=== PATIENT | male | born 1975 | race Caucasian/White ===

== ENCOUNTER 2018-02-18 09:25 | Emergency (ER) | payer BC, OTHER ==
[2018-02-18 09:32] VITALS: BP 123/59
--- NOTE | 2018-02-18 09:35 | UC ---
Back Pain HPI - HPI Summary HPI Summary: 42 yo male presents with low back pain. He tells me that yesterday he was lifting a heavy chest from the floor and felt a pull and pop in his lower back with pain. Since that time has had pain in his lower back radiating to his right leg with mild numbness. Pain is worse going from a sitting to standing position and lying flat. He took some ibuprofen yesterday with no relief. Denies dysuria, abdominal pain, saddle anesthesia, or loss of bowel/bladder control. - History of Current Complaint Chief Complaint: UCBackPain Stated Complaint: BACK PAIN Time Seen by Provider: 02/18/18 09:34 Hx Obtained From: Patient Onset/Duration: Sudden Onset Timing: Constant Severity Initially: Severe Severity Currently: Severe Pain Intensity: 8 Pain Scale Used: 0-10 Numeric - Allergies/Home Medications Allergies/Adverse Reactions: Allergies Allergy/AdvReac Type Severity Reaction Status Date / Time No Known Allergies Allergy Verified 02/18/18 09:34 PMH/Surg Hx/FS Hx/Imm Hx Respiratory History: Asthma - Surgical History Surgical History: Yes Surgery Procedure, Year, and Place: kidney stones. appy. pyloric stenosis. hernia repair - Family History Known Family History: Positive: Other Family History: MATERNAL UNCLE - COLON CANCER. MGF - LEUKEMIA - Social History Occupation: Employed Full-time Lives: With Family Alcohol Use: Occasionally Substance Use Type: None Smoking Status (MU): Never Smoked Tobacco - Immunization History Most Recent Tetanus Shot: 2011 Review of Systems All Other Systems Reviewed And Are Negative: Yes Constitutional: Positive: Negative Skin: Positive: Negative Respiratory: Positive: Negative Cardiovascular: Positive: Negative Neurovascular: Positive: Negative Musculoskeletal: Positive: Other: - Low back pain Neurological: Positive: Numbness - right leg Psychological: Positive: Negative Physical Exam - Summary Physical Exam Summary: GENERAL: NAD. WDWN. No pain distress. SKIN: No rashes, sores, lesions, or open wounds. NECK: Supple. FROM. Nontender. No lymphadenopathy. CHEST: CTAB. No r/r/w. No accessory muscle use. Breathing comfortably and in no distress. CV: RRR. Without m/r/g. Pulses intact. Cap refill <2seconds MSK: Low back: NTTP. Pain with flexion and extension of spine. Positive SLR on right for low back pain with slight radiation into right leg. Strength 5/5 B/L LEs including dorsiflexion and plantar flexion. FROM B/L LEs. No edema. NEURO: Alert. Sensations intact B/L LEs L3-S1. PSYCH: Age appropriate behavior. Triage Information Reviewed: Yes Vital Signs: Initial Vital Signs Temp 97.2 F 02/18/18 09:29 Pulse 71 02/18/18 09:29 Resp 16 02/18/18 09:29 BP 123/59 02/18/18 09:29 Pulse Ox 100 02/18/18 09:29 Vital Signs Reviewed: Yes Back Pain Course/Dx - Course Course Of Treatment: XR: IMPRESSION: UNREMARKABLE RADIOGRAPHS OF THE LUMBAR SPINE. Pt was given Toradol IM in the clinic with mild pain relief. Discussed possibility of underlying disc issue vs muscle strain. Advised to treat conservatively and f/u if symptoms do not improve or continue. Rest and apply heat. Will try flexeril and short course of [place] for use sparingly if needed. - Differential Dx/Diagnosis Provider Diagnosis: Low back pain Discharge - Sign-Out/Discharge Documenting (check all that apply): Patient Departure All imaging exams completed and their final reports reviewed: Yes - Discharge Plan Condition: Stable Disposition: HOME Prescriptions: Cyclobenzaprine TAB* [Flexeril 10 MG TAB*] 10 mg PO TID PRN #21 tab PRN Reason: Pain Hydrocodone/Acetaminophen [[place] 5-325 Tablet] 1 each PO BID PRN #8 tablet MDD 2 PRN Reason: Pain Patient Education Materials: Acute Low Back Pain (ED), Lower Back Exercises (ED ) Referrals: Paola Boo MD [Primary Care Provider] - [facility] [Provider Group] - If Needed Additional Instructions: If you develop a fever, shortness of breath, chest pain, new or worsening symptoms - please call your PCP or go to the ED. 1) Rest and apply ice/heat to your pain 2) Take pain medications as directed 3) If your symptoms do not improve in 7-10 days, nilsa follow up with [facility] at the number below for further evaluation - Billing Disposition and Condition Condition: STABLE Disposition: Home
[2018-02-18] MEDS ORDERED: Ketorolac INJ* 60 MG/2 ML VIAL IM ONE (09:45)
== END 2018-02-18 10:33 | disposition home or self-care (01) ==
LOC: UCEAST 09:25
DX: M54.5 Low back pain (principal); J45.909 Unspecified asthma, uncomplicated; X50.0XXA Overexertion from strenuous movement or load, initial encounter; Y93.89 Activity, other specified; Y92.9 Unspecified place or not applicable
CPT/HCPCS: 72110; 96372; 99212; G0463; J1885

== ENCOUNTER 2018-06-13 06:45 | Day surgery (SDC) | payer BC, OTHER ==
[~2018-06-13 06:45] MED LIST: Buffered Lidocaine 1% SYRIN* 1 ML/SYRINGE INTRADERM ONE; Lactated Ringers 1000 ML Bag* 1,000 ML IV SCH
[2018-06-13] MEDS ORDERED: ceFAZolin 2 GM in NS PREMIX(*) 2 GM/100 ML BAG IVPB ONE (07:18)
[2018-06-13] MEDS ORDERED: Ketorolac INJ* 30 MG/ML 1 ML VIAL ONE (07:18)
[2018-06-13] MEDS ORDERED: Bupivacaine 0.5% W/EPI SDV* 30 ML VIAL ONE (08:28)
[2018-06-13] MEDS ORDERED: fentaNYL* 50 MCG/ML 2 ML VIAL (100 MCG VIAL) ONE (08:28)
[2018-06-13] MEDS ORDERED: Lidocaine 1% INJ* 10 MG/ML 30 ML SDV ONE (08:28)
[2018-06-13] MEDS ORDERED: Midazolam* 1 MG/ML 5 ML VIAL (5 MG) ONE (08:29)
[2018-06-13] MEDS ORDERED: Naloxone* 0.4 MG/ML 1 ML VIAL IV PRN (08:34)
[2018-06-13] MEDS ORDERED: Propofol* 10 MG/ML 20 ML BTL ONE (08:52)
[2018-06-13] MEDS ORDERED: Lidocaine 2% PF * 5 ML VIAL ONE (08:52)
[2018-06-13 10:14] VITALS: BP 114/65
--- NOTE | 2018-06-13 12:46 | OP ---
CC: Iban Rodas MD; [facility] OPERATIVE REPORT: DATE OF OPERATION: 06/13/18 DATE OF : 77 SURGEON: Iban Rodas MD ANESTHESIOLOGIST: Dr. Lemon. ANESTHESIA: LMAC anesthesia. PRE-OP DIAGNOSIS: Right inguinal hernia. POST-OP DIAGNOSIS: Right inguinal hernia. OPERATIVE PROCEDURE: Open repair of right inguinal hernia with mesh. DESCRIPTION OF PROCEDURE: The patient was supine on the operating room table. After adequate intrave nous sedation, compression stockings, Erlin-Hugger warmer, and intravenous antibiotics, the right groi n was clipped and prepped with antiseptic, draped in a sterile fashion. Local infiltrative anesthesi a was administered. An approximately 3-inch incision was created and carried down to the external ob lique, which was opened in the direction of its fibers. Cord structures were encircled with a Penros e drain and tented upward. Indirect space hernia was readily identified. This was dissected free an d reduced, and a cone mesh plug was placed into the internal ring, sutured there with 2-0 Vicryl. A second piece of mesh was placed over the inguinal floor, sutured at the tubercle, tails were split, b rought on the cord structures and tacked down laterally. External oblique was closed over top with 2 -0 Vicryl, Yris's with 3-0 Vicryl, and skin with 4-0 Prolene followed by sterile dressing. He tole rated the procedure well and was brought to Recovery in good condition. No complications. No drains . No pathologic specimens. Sponge and instrument counts correct. Estimated blood loss 10 mL. [id number]/[facility] #: [id number]
== END 2018-06-13 11:09 | disposition home or self-care (01) ==
LOC: OR 06:45
PROVIDERS: ATTEND Surgery
DX: K40.90 Unilateral inguinal hernia, without obstruction or gangrene, not specified as recurrent (principal); J45.909 Unspecified asthma, uncomplicated; K21.9 Gastro-esophageal reflux disease without esophagitis
CPT/HCPCS: C1781; J0690; J1885; J2250; J2704; J3010

== ENCOUNTER 2018-10-07 07:12 | Inpatient (IN) | payer BC ==
[2018-10-07] MEDS ORDERED: Ticagrelor* 90 MG TAB PO ONE (07:24)
[2018-10-07] MEDS ORDERED: Heparin for STEMI(*) 5,000 UNITS/ML 1 ML VIAL IV ONE (07:24)
[2018-10-07] MEDS ORDERED: NS 0.9% 1000 ML** 1,000 ML IV ONE (07:28)
[2018-10-07] MEDS ORDERED: Morphine 4 MG/ML VIAL (1 ml) 4 MG/ML VIAL IV ONE (07:29)
[2018-10-07] MEDS ORDERED: Ondansetron INJ* 2 MG/ML VIAL IV ONE (07:29)
[2018-10-07] MEDS ORDERED: nitroGLYCERIN DRIP* 25,000 MCG/250 ML BTL ONE (07:30)
[2018-10-07] MEDS ORDERED: Lidocaine 1% INJ* 10 MG/ML 30 ML SDV ONE (07:30)
[2018-10-07] MEDS ORDERED: Heparin(*) 1000 UNIT/ML 10 ML VIAL CATH LAB IV ONE (07:30)
[2018-10-07] MEDS ORDERED: VERAPAMIL 2.5 MG/ML 2 ML VIAL ** 5 mg/2 ml ONE (07:30)
[2018-10-07] MEDS ORDERED: Heparin 2 UNITS/ML IVPREMIX* 3,000 UNIT/1,500 ML BAG IV ONE (07:31)
[2018-10-07] MEDS ORDERED: Iohexol 350 (CONTRAST) 200 ML MDV IV ONE (07:35)
--- NOTE | 2018-10-07 07:35 | ED ---
HPI Chest Pain - HPI Summary HPI Summary: Pt is a 43 y/o M presenting to the ED with a chief complaint of chest pain in the mid-sternal region onset this morning when he woke up. STEMI CALLED 0722. He rates the pain at a 5/10 and describes it as a dull, aching feeling. He also reports nausea and diaphoresis. Nothing makes the pain worse or better, and he took two ASA 325mg this morning. He states he smokes 1-2 cigarettes a day, drinks alcohol often, and does not use recreational drugs. NKDA. His grandfather of a heart attack at 56 y/o. - History of Current Complaint Chief Complaint: EDChestPainROMI Hx Obtained From: Patient Onset/Duration: Started Hours Ago, Still Present Timing: Constant, Lasting Hours Initial Severity: Moderate Current Severity: Moderate Pain Intensity: 5 Pain Scale Used: 0-10 Numeric Chest Pain Location: Mid Sternal Chest Pain Radiates: No Character: Dull/Aching Aggravating Factor(s): Nothing Alleviating Factor(s): Nothing Associated Signs and Symptoms: Positive: Chest Pain, Diaphoresis, Nausea - Allergy/Home Medications Allergies/Adverse Reactions: Allergies Allergy/AdvReac Type Severity Reaction Status Date / Time bee pollen Allergy Anaphylatic Verified 10/07/18 09:07 Shock bee venom protein (honey bee) Allergy Anaphylatic Verified 10/07/18 09:07 Shock Environmental/Seasonal Allergy See Comment Uncoded 06/13/18 07:26 Allergies PMH/Surg Hx/FS Hx/Imm Hx Previously Healthy: Yes Endocrine/Hematology History: Denies: Hx Diabetes, Hx Thyroid Disease Cardiovascular History: Denies: Hx Congestive Heart Failure, Hx Deep Vein Thrombosis, Hx Hypertension , Hx Myocardial Infarction, Hx Pacemaker/ICD, Other Cardiovascular Problems/ Disorders Respiratory History: Reports: Hx Asthma - He states that he uses his albuterol a "handfull" times a year. Denies: Hx Chronic Obstructive Pulmonary Disease (COPD), Hx Lung Cancer, Other Respiratory Problems/Disorders GI History: Reports: Hx Ulcer - possible ulcer-started pantoprazole 06/05/18- seen in ER, Other GI Disorders Denies: Hx Gall Bladder Disease, Hx Gastrointestinal Bleed, Hx Urosepsis History: Reports: Hx Kidney Stones - lithotripsy 2010 Denies: Hx Renal Disease, Other Problems/Disorders Musculoskeletal History: Reports: Other Musculoskeletal History - Right inguinal hernia Denies: Hx Scoliosis Sensory History: Denies: Hx Contacts or Glasses, Hx Hearing Aid Opthamlomology History: Denies: Hx Contacts or Glasses Neurological History: Reports: Hx Nerve Disease - numbness in right upper outer leg from previous injury Denies: Hx Dementia, Hx Headaches, Hx Migraine, Hx Seizures, Hx Transient Ischemic Attacks (TIA), Other Neuro Impairments/Disorders Psychiatric History: Denies: Hx Anxiety, Hx Depression, Hx Schizophrenia, Hx Bipolar Disorder - Surgical History Surgery Procedure, Year, and Place: Kidney Stone 2010. Appendectomy 1990. Pyloric Stenosis as an . Ventral Hernia Repair as a child Hx Anesthesia Reactions: No Infectious Disease History: No Infectious Disease History: Denies: Hx Hepatitis, Hx Human Immunodeficiency Virus (HIV), Traveled Outside the [place] in Last 30 Days - Family History Known Family History: Positive: Cardiac Disease - grandfather of a heart attack at 56 y/o, Other Family History: MATERNAL UNCLE - COLON CANCER. MGF - LEUKEMIA - Social History Alcohol Use: Weekly Hx Substance Use: No Substance Use Type: Reports: None Hx Tobacco Use: Yes Smoking Status (MU): Light Every Day Tobacco Smoker - 1-2 cigarettes/day Type: Cigarettes Review of Systems Positive: Skin Diaphoresis Positive: Chest Pain Positive: Nausea All Other Systems Reviewed And Are Negative: Yes Physical Exam - Summary Physical Exam Summary: GENERAL: Patient is a well-developed and nourished M who is lying comfortable in the stretcher. Patient is not in any acute respiratory distress. HEAD AND FACE: Normocephalic EYES: PERRLA, EOMI x 2. EARS: Hearing grossly intact. MOUTH: Oropharynx within normal limits. NECK: Supple, trachea is midline, no adenopathy, no JVD, no carotid bruit. CHEST: Symmetric, no tenderness at palpation LUNGS: Clear to auscultation bilaterally. No wheezing or crackles. CVS: Regular rate and rhythm, S1 and S2 present, no murmurs or gallops appreciated. ABDOMEN: Soft, non-tender. Bowel sounds are normal. No abnormal abdominal pulsations. EXTREMITIES: Full ROM in all major joints, no edema, no cyanosis or clubbing. NEURO: Alert and oriented x 3. No acute neurological deficits. Speech is normal and follows commands. SKIN: Dry and warm Triage Information Reviewed: Yes Vital Signs On Initial Exam: Initial Vitals Temp Pulse Resp BP Pulse Ox 97.4 F 55 16 132/86 100 10/07/18 07:21 10/07/18 07:21 10/07/18 07:21 10/07/18 07:21 10/07/18 07:21 Vital Signs Reviewed: Yes Diagnostics - Vital Signs Vital Signs Temp Pulse Resp BP Pulse Ox 10/07/18 07:21 97.4 F 55 16 132/86 100 - Laboratory Result Diagrams: 10/07/18 07:20 10/07/18 07:20 Lab Statement: Any lab studies that have been ordered have been reviewed, and results considered in the medical decision making process. - EKG 0714 Cardiac Rate: Bradycardia - 49bpm EKG Rhythm: Sinus Bradycardia ST Segment: Non-Specific Ectopy: None Summary of EKG Findings: EKG at 0714 shows sinus bradycardia at 49bpm with ST elevation in the inferior leads and reciprocal depression in v1 and v2 consistent with a STEMI. Chest Pain Course/Dx - Course Course Of Treatment: Pt is a 43 y/o M presenting to the ED with a chief complaint of chest pain in the mid-sternal region onset this morning when he woke up. STEMI CALLED 721. He also reports nausea and diaphoresis. The pt's physical exam is nml. EKG at 0714 shows sinus bradycardia at 49bpm with ST elevation in the inferior leads and reciprocal depression in v1 and v2 consistent with a STEMI. Heparin, Zofran, Brilinta, and a dose of Morphine were ordered for the pt in the ED to help alleviate his sx. Dr. Palmer came down to the ED to see the patient and he was admitted to the cardiac unit with a dx of STEMI. - Diagnoses Provider Diagnoses: ST elevation (STEMI) myocardial infarction During the Visit The Following Alert/Code Occurred: STEMI - 721 - Critical Care Time Critical Care Time: 30-74 min - 30min Discharge - Sign-Out/Discharge Documenting (check all that apply): Patient Departure - Discharge Plan Condition: Stable Disposition: ADMITTED TO [facility] - Billing Disposition and Condition Condition: STABLE Disposition: Admitted to [facility] - Attestation Statements Document Initiated by Scribe: Yes Documenting Scribe: Radha Toledo Provider For Whom Scribe is Documenting (Include Credential): Ewa Gaytan MD. Scribe Attestation: I, Radha Toledo, scribed for Ewa Gaytan MD. on 10/07/18 at 1243. Scribe Documentation Reviewed: Yes Provider Attestation: The documentation as recorded by the scribe, Radha Toledo accurately reflects the service I personally performed and the decisions made by me, Anushka Gaytan MD. Status of Scribe Document: Viewed
[2018-10-07] MEDS ORDERED: Midazolam* 1 MG/ML 5 ML VIAL (5 MG) ONE (07:47)
[2018-10-07 07:48] LABS: Hematocrit 43 % (42-52); Hemoglobin 14.6 g/dL (14.0-18.0); Mean Corpuscular HGB Conc 34 g/dL (31-36); Mean Corpuscular Hemoglobin 32 pg (27-31); Mean Corpuscular Volume 93 fL (80-94); Mean Platelet Volume 7.7 fL (7.4-10.4); Platelet Count 214 10^3/uL (150-450); Red Blood Count 4.56 10^6 /uL (4.18-5.48); Red Cell Distribution Width 13 % (10-15); White Blood Count 6.4 10^3/uL (3.5-10.8)
[2018-10-07] MEDS ORDERED: fentaNYL* 50 MCG/ML 2 ML VIAL (100 MCG VIAL) ONE (07:49)
[2018-10-07 07:57] LABS: Activated Partial Thrombo Time 35.7 seconds (26.0-38.0); INR 0.91 (0.82-1.09)
[2018-10-07 08:10] LABS: ABS Basophils 0.1 10^3/ul (0-0.2); ABS Eosinophils 0.5 10^3/ul (0-0.6); ABS Lymphocytes 2.2 10^3/ul (1.0-4.8); ABS Monocytes 0.8 10^3/ul (0-0.8); ABS Neutrophils 2.9 10^3/ul (1.5-7.7); Eosinophil % 7.9 %; Lymphocyte % 33.9 %; Nucleated Red Blood Cells % 0.1
[2018-10-07] MEDS ORDERED: niCARdipine 0.1MG/ML IVPREMIX* 20 MG/200 ML BAG IV ONE (08:12)
[2018-10-07 08:19] LABS: Albumin 4.2 g/dL (3.2-5.2); Albumin/Globulin Ratio 1.6 (1-3); BUN/Creatinine Ratio 14.9 (8-20); Calcium 9.3 mg/dL (8.6-10.3); EGFR African American 106.5 (>60); Globulin 2.7 g/dL (2-4); Potassium 4.6 mmol/L (3.5-5.0); Total Bilirubin 0.5 mg/dL (0.2-1.0); Total Protein 6.9 g/dL (6.4-8.9)
[2018-10-07 08:24] LABS: CKMB ng/mL 1.9 ng/mL (0.6-6.3); Myoglobin 34.5 ng/mL (17.4-105.7)
[2018-10-07] MEDS ORDERED: Nitroglycerin TAB 0.4 MG* 0.4 MG TAB SL PRN (08:39)
[2018-10-07] MEDS ORDERED: Docusate CAP* 100 MG PO PRN (08:39)
[2018-10-07] MEDS ORDERED: Ondansetron INJ* 2 MG/ML VIAL IV PRN (08:39)
[2018-10-07] MEDS ORDERED: Zolpidem TAB* 5 MG PO PRN (08:39)
[2018-10-07] MEDS ORDERED: Acetaminophen TAB* 325 MG PO PRN (08:39)
[2018-10-07] MEDS ORDERED: Atorvastatin* 80 MG TAB PO ONE (08:45)
[2018-10-07] MEDS ORDERED: NS 0.9% 1000 ML** 1,000 ML IV SCH (08:45)
[2018-10-07] MEDS ORDERED: Ticagrelor* 90 MG TAB PO SCH (09:00)
[2018-10-07] MEDS: Aspirin 81 mg CHEW TAB* 81 MG TAB.CHEW PO SCH (09:49)
[2018-10-07] MEDS ORDERED: Diltiazem CD CAP* 120 MG PO SCH (10:00)
[2018-10-07 10:41] LABS: Calcium 9.6 mg/dL (8.6-10.3); Potassium 4.7 mmol/L (3.5-5.0)
[2018-10-07 10:46] LABS: BUN/Creatinine Ratio 15.2 (8-20); EGFR African American 100.3 (>60); EGFR Non-African American 82.9 (>60)
--- NOTE | 2018-10-07 13:14 | HP ---
CC: Dr. Fox Chan * ADMISSION HISTORY AND PHYSICAL: DATE OF ADMISSION: 10/07/18 CHIEF COMPLAINT: The patient presents with chest heaviness and EKG demonstrating acute ST-segment elevation inferior wall myocardial infarction. HISTORY OF PRESENT ILLNESS: The patient is a 43-year-old gentleman with no prior known cardiac history. Specifically, he denies any history of myocardial infarction, congestive heart failure, or significant heart rhythm disturbance. The patient awoke today and once he woke up at approximately 6 a.m., he noted that he was having chest heaviness. There was some left arm discomfort as well as right side of his neck. He had minimal diaphoresis, but no significant shortness of breath, nausea, or vomiting. There was no radiation to the jaw or to the back. The symptom persisted and as such he came to the emergency room and in the emergency room, an EKG was performed, which showed mild ST-segment elevation in II, III, aVF with mild ST-segment depression in aVL. A STEMI alert was called. When I saw him, he was complaining of only mild discomfort, actually stating the symptom felt better. A discussion was had with the patient regarding risks and benefits of cardiac catheterization and potential intervention. He understood them and wished to proceed. Cardiac risk factors include negative history of hypertension, negative history of diabetes, and negative known history of increased cholesterol; a family history borderline positive with a grandfather who had early coronary artery disease in his 30s. The father had heart disease in his 30s, but it was not coronary artery disease. The patient also has a history of significant smoking. PAST MEDICAL HISTORY: Includes asthma for which he has an inhaler that he takes on a p.r.n. basis. At one point, he was thought to have gastroesophageal reflux and was transiently on pantoprazole, but no longer takes that. He also had a prior history of a kidney stone. PAST SURGICAL HISTORY: He had multiple hernia surgeries. He had pyloric stenosis as a young in life, he had surgery for that. SOCIAL HISTORY: He smoked for an extended period of time. He states he rarely uses marijuana, but he adamantly denies that he has never used cocaine, heroin, or other illicit drugs. REVIEW OF SYSTEMS: Pertinent to proceeding emergently to the cardiovascular laboratory: The patient denies any history of TIA or stroke. He denies any history of hematochezia, hematemesis, or hematuria. He denies any significant kidney dysfunction (he did have the kidney stone as mentioned earlier). He is not allergic to contrast. PHYSICAL EXAMINATION GENERAL: When I see him in the emergency room reveals a pleasant gentleman, anxious, but not in any significant discomfort, only mild chest discomfort. VITAL SIGNS: Blood pressure 132/86, pulse 55, respirations 16, O2 saturation 100% on room air, afebrile. HEENT: Conjunctivae pink. Sclerae clear. Mouth reveals moist mucosa. NECK: Supple. No increased JVP. Carotid with good upstroke and volume without bruits. LUNGS: Reveal no accessory muscle use. There is good excursion. No active rales, rhonchi, or wheezes. HEART: Reveals no visible heaves. No palpable heaves or thrills. Normal S1, S2 with no S3, S4, gallop. No significant systolic or diastolic murmurs were appreciated. Heart sounds in general somewhat distant. ABDOMEN: Soft, nontender without organomegaly. EXTREMITIES: Without clubbing, cyanosis, rachel pitting edema. Peripheral pulses intact. MUSCULOSKELETAL: The patient with normal gait. The patient moves all extremities appropriately. NEURO: The patient is alert, oriented with normal mentation. PSYCHOLOGICAL: The patient with appropriate affect. DIAGNOSTIC STUDIES: Electrocardiogram dated 10/07/18, time 7:14 a.m., reveals sinus bradycardia, heart rate 49, mild ST-segment elevation with concave upward noted in II, II, aVF and mild ST-segment depression in aVL are seen. Minimal nonspecific ST-segment abnormalities in V2 are noted. ASSESSMENT AND PLAN: Overall assessment, the patient presents with chest discomfort with an EKG suggestive of perhaps an acute ST-segment inferior wall myocardial infarction. The risks and benefits were explained to the patient regarding cardiac catheterization and intervention. He understands them and wished to proceed. The patient has received 4000 units of heparin, 180 mg of Brilinta, and he has already taken full-dose aspirin at home. Further management will be made pending results of the cardiac catheterization. [id number]/[facility] #: [id number] [facility]
[2018-10-07 14:05] LABS: Activated Partial Thrombo Time 34.6 seconds (26.0-38.0)
[2018-10-07 14:11] LABS: Creatine Kinase 338 U/L (10-223)
[2018-10-07 14:23] LABS: Troponin I 2.06 ng/mL (<0.04)
--- NOTE | 2018-10-07 16:28 | ECHO ---
*[facility]* [place] [address] Fax #: [phone] Transthoracic Echocardiogram Patient: Fox Pennington : 1975 Study Date: 10/07/2018 Age: 43 Gender: M HR: 61 bpm Height: 72 in /182.9 cm BSA: 2.14 m^2 Weight: 202.6 lb /92.1 kg BMI: 27.5 kg/m^2 *Big Data Engineer: * Mickie Taylor [facility] *Referring Physician: * Jose Palmer MD *Reading Physician: * Gonzalez Power MD Indications: Myocardial Infarction (new). History: Risk factors: Current tobacco use. Family history is significant for coronary artery disease. Conclusions Summary: - Left ventricle: Systolic function is normal. The estimated ejection fraction is 55-60%. - Regional wall motion abnormality: Mild hypokinesis of the apical myocardium. - Right ventricle: Systolic function is normal. - Mitral valve: There is trace regurgitation. - Aortic valve: There is no evidence of stenosis. There is no significant regurgitation. - Pulmonic valve: There is trace regurgitation. - Pericardium, extracardiac: There is no significant pericardial effusion. - Pulmonary arteries: Systolic pressure can not be accurately estimated. - Study data: No prior study is available for comparison. Study data: Transthoracic echocardiogram. Procedure: Transthoracic echocardiography was performed. Image quality was good. Complete 2D, spectral Doppler, and color flow Doppler. Location: ICU Patient status: Inpatient. Patient room number: 3. No prior study is available for comparison. Rhythm: Normal sinus rhythm. Findings Left ventricle: The cavity size is normal. Wall thickness is mildly increased. Systolic function is normal. The estimated ejection fraction is 55-60%. Regional wall motion abnormalities: Mild hypokinesis of the apical myocardium. Left ventricular diastolic function parameters are normal. Right ventricle: The cavity size is normal. Systolic function is normal. Left atrium: The atrium is normal in size. Right atrium: The atrium is normal in size. Mitral valve: The leaflets are normal thickness. There is no evidence of stenosis. There is trace regurgitation. Aortic valve: The valve is trileaflet. The leaflets are normal thickness. There is no evidence of stenosis. There is no significant regurgitation. Tricuspid valve: The leaflets are normal thickness. There is no evidence of stenosis. There is trace regurgitation. Pulmonic valve: The leaflets are normal thickness. There is no evidence of stenosis. There is trace regurgitation. Aorta: The aortic root appears normal. The aortic arch appears normal. Pericardium: There is no significant pericardial effusion. Pulmonary arteries: The main pulmonary artery is normal-sized. Systolic pressure can not be accurately estimated. Systemic veins: Inferior vena cava: The vessel is normal in size. There is (>= 50%) respiratory change in the IVC dimension. Pulmonary veins: The flow of the pulmonary veins appears normal. Measurements Left ventricle Value Ref Aortic valve continued Value Ref MAILE, LAX 4.5 cm 4.2 - 5.8 Peak v, S 1.17 m/sec ---- ESD, LAX 2.8 cm 2.5 - 4.0 VTI, S 25.9 cm ---- FS, LAX 38 % 25 - 43 Mean grad, S 3.0 mm Hg ---- PW, ED, LAX (H) 1.1 cm 0.6 - 1.0 Peak grad, S 5.0 mm Hg ---- EF 69 % 52 - 72 E', lat adelaida, TDI 14.9 cm/sec >=10.0 Mitral valve Value Re f E/e', lat adelaida, 5 Peak E 0.74 m/sec ---- TDI Peak A 0.42 m/sec ---- E', med adelaida, TDI 12.3 cm/sec >=7.0 Decel time 182 ms -- -- E/e', med adelaida, 6 Peak grad, D 2.2 mm Hg ---- TDI Peak E/A ratio 1.7 ---- E', avg, TDI 13.6 cm/sec E/e', avg, TDI 5 <=14 Pulmonic valve Value Re f Peak v, S 0.59 m/sec ---- LVOT Value Ref Peak grad, S 1.0 mm Hg ---- Peak rosendo, S 1.03 m/sec Mean grad, S 2 mm Hg Aortic root Value Ref Root diam 3.2 cm <4.2 Ventricular septum Value Ref IVS, ED (H) 1.1 cm 0.6 - 1.0 Ascending aorta Value Ref AAo AP diam, S 2.9 cm ---- Right ventricle Value Ref MAILE, LAX 3.0 cm Aortic arch Value Ref MAILE minor ax, A4C 2.8 cm 1.9 - 3.5 Arch diam 3.0 cm ---- mid Decending aorta Value Ref Left atrium Value Ref James peak rosendo 1.16 m/sec ---- AP dim, ES 3.80 cm 3.00 - 4.00 Inferior vena cava Value Ref ML dim, A4C 3.5 cm Diam 2.0 cm ---- SI dim, A4C 5.2 cm Vol/bsa, ES, A/L 26 ml/m^2 16 - 34 Pulmonary veins Value Ref Peak v, S 0.43 m/sec ---- Right atrium Value Ref Peak v, D 0.33 m/sec ---- SI dim, ES 4.5 cm 3.4 - 5.3 Peak S/D ratio 1.3 ---- ML dim, ES, A4C 3.8 cm 2.6 - 4.4 A rev duration 84 ms ---- Estimated RAP 8 mm Hg Aortic valve Value Ref Adelaida diam, ED 2.3 cm Legend: (L) and (H) carmelina values outside specified reference range. Prepared and electronically signed by Gonzalez Power MD 10/07/2018 16:28
[2018-10-07 16:56] LABS: Magnesium 2.1 mg/dL (1.9-2.7)
[2018-10-07] MEDS ORDERED: Metoprolol Succinate XL TAB* 25 MG PO SCH (17:00)
[2018-10-07] MEDS ORDERED: Amiodarone 150 MG IVPREMIX* 150 MG/100 ML BAG IV ONE (18:18)
[2018-10-07] MEDS ORDERED: Amiodarone DRIP 150 MG in D5W 100 ML *LOADING DOSE* OVER 10 MIN IV ONE (18:30)
[2018-10-07] MEDS ORDERED: Amiodarone 360 MG IVPREMIX* 360 MG/200 ML BAG IV ONE (18:38)
[2018-10-07] MEDS ORDERED: Amiodarone DRIP* 1.8 MG/ML 200 ML IV ONE (19:00)
[2018-10-07 20:06] LABS: CKMB ng/mL 56.2 ng/mL (0.6-6.3)
[2018-10-07 20:10] LABS: Troponin I 6.58 ng/mL (<0.04)
[2018-10-07] MEDS: Ticagrelor* 90 MG TAB PO SCH (21:34)
[2018-10-07] MEDS ORDERED: Metoprolol Succinate XL TAB* 25 MG PO ONE (22:00)
[2018-10-08] MEDS ORDERED: Amiodarone 360 MG IVPREMIX* 360 MG/200 ML BAG IV SCH (01:00)
[2018-10-08 02:08] LABS: Creatine Kinase 387 U/L (10-223)
[2018-10-08 02:15] LABS: Troponin I 5.32 ng/mL (<0.04)
[2018-10-08 06:14] LABS: ABS Basophils 0.1 10^3/ul (0-0.2); ABS Eosinophils 0.5 10^3/ul (0-0.6); ABS Lymphocytes 2.1 10^3/ul (1.0-4.8); ABS Monocytes 0.7 10^3/ul (0-0.8); ABS Neutrophils 4.2 10^3/ul (1.5-7.7); Eosinophil % 6.1 %; Hematocrit 39 % (42-52); Hemoglobin 13.1 g/dL (14.0-18.0); Lymphocyte % 27.4 %; Mean Corpuscular HGB Conc 34 g/dL (31-36); Mean Corpuscular Hemoglobin 32 pg (27-31); Mean Corpuscular Volume 94 fL (80-94); Mean Platelet Volume 7.8 fL (7.4-10.4); Nucleated Red Blood Cells % 0.1; Platelet Count 200 10^3/uL (150-450); Red Blood Count 4.13 10^6 /uL (4.18-5.48); Red Cell Distribution Width 13 % (10-15); White Blood Count 7.5 10^3/uL (3.5-10.8)
[2018-10-08 06:31] LABS: BUN/Creatinine Ratio 12.6 (8-20); Calcium 8.6 mg/dL (8.6-10.3); EGFR African American 116.4 (>60); EGFR Non-African American 96.2 (>60); HDL Cholesterol 48.3 mg/dL; Potassium 3.8 mmol/L (3.5-5.0)
[2018-10-08] MEDS ORDERED: Potassium Chlor TAB* 20 MEQ TAB.ER PO ONE (07:36)
[2018-10-08] MEDS: Ticagrelor* 90 MG TAB PO SCH ×2 (08:23→20:08)
[2018-10-08] MEDS: Aspirin 81 mg CHEW TAB* 81 MG TAB.CHEW PO SCH (08:24)
--- NOTE | 2018-10-08 08:37 | CATH ---
"*[facility]* [place] [address] Main: [phone] [email or web address] Cardiac Catheterization Patient: Fox Pennington : 1975 Study Date: 10/07/2018 Age: 43 Gender: M HR: Height: 72 in /182.9 cm BSA: 2.13 m^2 Weight: 194.5 lb /88.4 kg BMI: 26.4 kg/m^2 Health Record Technician: Jose Palmer MD Ordering Physician: Suzi Rudd Procedures performed: - Right coronary angiography. - Left coronary angiography. - Left heart catheterization with angiography. Summary: 1. LAD: There is marked caliber change to the distal left anterior descending coronary with less than 1-1.5 mm becoming treadlike in it's distal portion with possible distal occlusion before wrapping onto a small area of the apical inferior wall. 2. Left ventricle: Systolic function is at the lower limits of normal. The estimated ejection fraction is 50-55%. Moderate hypokinesis of the apical myocardium. This is a small area of myocardium. Recommendations: Given a very small area of myocardium involved and improtantly , a very small caliuber of distal vessel size, despite aggressive antispasm tx, no interventional procedure was attempted. Medical management will be prused, including statin therapy, dual antiplatelet thrapy and most importantly smoking cessation. Indications: NSTEMI of the inferior wall(s). History: ST-elevated myocardial infarction. Symptom onset on 10/07/2018 at 06:00 AM, time estimated. Functional status: CCS class IV (angina at rest or with any physical activity). Risk factors: Current tobacco use. Hypertension. Dyslipidemia. Family history is significant for coronary artery disease. Medications: The patient received no antianginal therapy in the last two weeks. Labs, prior tests, procedures, and surgery: Blood tests: Troponin I (pre-procedure) of 0 ng/ml. International normalized ratio (INR) of 0.91. Partial thromboplastin time (PTT) of 35.7 sec. Serum potassium (K) of 4.6 mEq/l. Serum sodium (Na) of 140 mEq/l. Serum creatinine (current admission) of 0.94 mg/dl. Blood urea nitrogen of 14 mg/dl. Glucose of 109 mg/dl. Platelet count of 214 th/ul. White blood cell count (WBC) of 0.01 th/ul. Red blood cell count (RBC) of 4560 th/ul. Hematocrit of 43 %. Hemoglobin (pre-procedure) of 14.6 g/dl. Study data: Location: Catheterization laboratory. Consent: The risks, benefits, and alternatives to the procedure were explained to the patient and/or their healthcare contracts representative and written informed consent was obtained. All available pre-procedure labs were reviewed. Height: 182.9 cm. 72 in. Weight: 88.4 kg. 194.5 lb. Body surface area: 2.13 m^2. Body mass index: 26.4 kg/m^2. Procedure: 1. Initial setup. The patient was brought to the laboratory. Surface ECG leads, blood pressure measurements, and pulse oximetric signals were monitored. A baseline seven lead ECG was recorded. A time out was observed per protocol. 2. Skin preparation. The planned puncture sites were prepped and draped in the usual sterile manner. 3. Local anesthesia. 1% lidocaine was administered. 4. Local anesthesia. 1% lidocaine (2 ml) was administered. 5. Right radial artery access. A 6F Glidesheath Slender sheath was advanced into the vessel. 6. Selective right coronary angiography. A 5F TIG 4.0 catheter was advanced into the right coronary vessel ostium under fluoroscopic guidance. Contrast was injected. Images were obtained in multiple projections. 7. Selective left coronary angiography. A 5F FL 3.5 Diagnostic Impulse catheter was advanced into the left coronary vessel ostium under fluoroscopic guidance. Contrast was injected. Images were obtained in multiple projections. 8. Left heart catheterization with angiography. A 5F PIG Short Radial catheter was advanced across the aortic valve to the left ventricle under fluoroscopic guidance. 28 ml of contrast was injected at 14 ml/s. 9. Right radial artery hemostasis. Vessel closure was achieved with a Regular Vasc Band device. Hemostasis was successfully obtained. 10. ACT was 243 sec. Anticoagulation was judged to be satisfactory. Study completion: Minimal estimated blood loss. All catheters inserted during the procedure were removed. There were no apparent complications. Administered medications: (Radial) Nitroglycerin, 300mcg, intra-arterially. (Radial) Verapamil, 3mg, intra-arterially. (IC) NITROGLYCERIN, 100mcg, intra-arterially. BRILINTA (Ticagrelor), 180mg, PO. Aspirin, 325mg, PO. VERSED (Midazolam), for a total dose of 1.5mg, IV. (IC) NITROGLYCERIN, for a total dose of 300mcg, into the coronary artery. Cardene (nicardipine HCl), for a total dose of 200mcg, into the coronary artery. NaCl 0.9% , 200 ml , bolus. Contrast: Omnipaque 350 250 ml (total dose). Omnipaque 350 150 ml (wasted). Radiation: Fluoroscopy time: 8.7 min. Fluoroscopy dose: 92.1 cGy. Discharge: The patient tolerated the procedure well and was discharged from the lab in stable condition. Findings Coronary arteries: The coronary circulation is right dominant. The left main trifurcates into the LAD, a ramus intermedius, and the left circumflex. The left anterior descending gives rise to 3 diagonals. There is marked caliber cvhange to the distal left anterior descending coronary with less than 1-1.5 mm becoming treadlike in it'sdistal portion with possible distal occlusion before wrapping onto a small area of the apical inferior wall. The left circumflex gives rise to 3 obtuse marginals, with a small caliber bifurcating high 1st OM. The right coronary gives rise to amall posterior descending artery and 2 RV marginals. There is a large low lying acute marginal branch supplying the distal inferior wall. Left main: Normal, no significant stenosis. LAD: There is marked caliber change to the distal left anterior descending coronary with less than 1-1.5 mm becoming treadlike in it's distal portion with possible distal occlusion before wrapping onto a small area of the apical inferior wall. Left circumflex: Normal, significant stenosis. Right coronary: Normal, no significant stenosis. Left ventricle: Systolic function is at the lower limits of normal. The estimated ejection fraction is 50-55%. Regional wall motion abnormalities: Moderate hypokinesis of the apical myocardium. This is a small area of myocardium. Hemodynamics: + + + |Stage description |Condition 1 - | + + + |LV pressure s/d, ed |127/10, 18, dP/hi=4754 mm Hg/s| + + + |Arterial pressure s/d (m)|114/73 (91) | + + + Prepared and electronically signed by Jose Palmer MD 10/08/2018 08:36"
[2018-10-08] MEDS ORDERED: amLODIPine TAB* 5 MG PO SCH (09:00)
[2018-10-08] MEDS ORDERED: Metoprolol Succinate XL TAB* 25 MG PO SCH (09:00)
[2018-10-08] MEDS: Metoprolol Succinate XL TAB* 25 MG PO SCH ×2 (11:26→20:07)
[2018-10-08 13:11] LABS: Troponin I 3.84 ng/mL (<0.04)
[2018-10-08 13:12] LABS: BUN/Creatinine Ratio 12.2 (8-20); Calcium 9.2 mg/dL (8.6-10.3); EGFR African American 124.7 (>60); Potassium 3.9 mmol/L (3.5-5.0)
[2018-10-08 13:17] LABS: CKMB ng/mL 16.2 ng/mL (0.6-6.3)
[2018-10-08 13:18] LABS: Troponin I 1.4 ng/mL (<0.04)
[2018-10-08] MEDS: Pantoprazole TAB * 40 MG TAB PO SCH (13:38)
[2018-10-08] MEDS ORDERED: Enoxaparin(*) 40 MG/0.4 ML SYR SUBCUT SCH (17:00)
[2018-10-08] MEDS ORDERED: Atorvastatin* 80 MG TAB PO SCH (17:00)
[2018-10-08] MEDS: amLODIPine TAB* 5 MG PO SCH (20:08)
[2018-10-09] MEDS: Pantoprazole TAB * 40 MG TAB PO SCH (09:38)
[2018-10-09] MEDS: Aspirin 81 mg CHEW TAB* 81 MG TAB.CHEW PO SCH (09:38)
[2018-10-09] MEDS: Ticagrelor* 90 MG TAB PO SCH (09:38)
[2018-10-09] MEDS: Metoprolol Succinate XL TAB* 25 MG PO SCH (09:38)
[2018-10-09] MEDS: amLODIPine TAB* 5 MG PO SCH (09:39)
[2018-10-09 12:13] VITALS: BP 105/60
--- NOTE | 2018-10-09 14:55 | DS ---
CC: Dr. Fox Chan * DISCHARGE SUMMARY: DATE OF ADMISSION: 10/07/18 DATE OF DISCHARGE: 10/09/18 FINAL DIAGNOSIS: Apical ST segment elevation myocardial infarction. SECONDARY DIAGNOSES: 1. Coronary artery disease. 2. Hyperlipidemia. 3. History of smoking. 4. History of asthma. DISCHARGE MEDICATIONS: Include: 1. Aspirin 81 mg a day. 2. Atorvastatin 80 mg a day. 3. Metoprolol succinate 12.5 mg twice a day. 4. Amlodipine 2.5 mg twice a day. 5. Ticagrelor 90 mg twice a day. 6. Pantoprazole 40 mg a day. 7. Nitroglycerin sublingually p.r.n. 8. Albuterol inhaler p.r.n. 9. EpiPen p.r.n. for severe allergic reaction. HOSPITAL COURSE: The patient presented to the emergency room with chest discomfort and an EKG demonstrating ST segment elevations in the inferior leads. There were very subtle reciprocal changes in I and aVL. Because of persistent chest discomfort, he was taken emergently to the cardiovascular laboratory. Please refer to both the H and P and the catheterization report for the details. In summary, cardiac catheterization demonstrated the very distal portion of the LAD to taper into thread like vessels with probable total occlusion of a small region, with the LV gram demonstrating a small apical severely hypo to akinetic area. The artery was clearly too small for any type of intervention. Multiple medications were given to treat the potential for spasm, but it did not significantly improve the caliber of any of these vessels. The patient was therefore maintained on medical management over the course of the next 48 hours, had beta-jennifer instituted in addition to low-dose calcium channel blockers in case spasm still had some potential cause for this. During the first 12 to 24 hours post catheterization, he had ventricular arrhythmias with short bursts of ventricular tachycardia and 1 longer beat. Amiodarone was initially given intravenously and weaned off within the end of the first 24 to 36 hours. No further arrhythmias were detected despite him walking vigorously up on the floor on beta-jennifer therapy. PHYSICAL EXAMINATION: On the day of discharge, physical examination revealed vital signs to be stable. Neck was supple. There was no increased JVP. Carotid had good upstroke and volume without bruits. Lungs were clear to A and P with no active rales, rhonchi, or wheezes. Heart revealed no palpable heaves and thrills. No significant systolic or diastolic murmur. Abdomen was soft and nontender. Extremities without edema. The right radial artery had no significant swelling, no hematoma, had excellent pulse and very good antegrade flow. Neuro: The patient was alert, oriented with normal mentation. Musculoskeletal: The patient with normal gait. Psychiatric: The patient with normal affect. DIAGNOSTIC STUDIES/LAB DATA: Laboratory results through the hospitalization revealed peak CPKs at 466 with an MB of 56.2 and a peak troponin of 6.58. EKGs had revealed improvement of the ST segment elevation in the inferior leads with minimal nonspecific ST segment elevation in II and aVF and slightly more in lead III, but no significant Q-wave in lead II or aVF. There was minimal J point elevation in V5 and V6. All of the leads demonstrated concave upward ST segments. During the course of the hospitalization, he was given a cardiac education booklet for him to start reading about his disease process. I also had multiple conversations with him about stopping smoking, and it was quite obvious in talking with the patient, he will not be pursuing anymore smoking as he has had history of smoking prior to admission. Other studies done during the hospitalization included a transthoracic echocardiogram performed on 10/07/18 which was the day of presentation. Overall , left ventricular ejection fraction was 55% to 60% with mild hypokinesis of the apical region. There was trace mitral and pulmonic regurgitation. The patient has a followup wound check appointment with Dr. Tushar Jones, my partner, next week and all of that information was given to him. His medications had been electronically sent to the pharmacy of his choice as well. At the time of discharge the patient is stable and will be discharged to home. [id number]/[facility] #: [id number] HOSPITALAnne Marie
[2018-10-09] MEDS ORDERED: AMLODIPINE 2.5 MG TAB (NF) PO SCH (21:00)
== END 2018-10-09 16:21 | disposition home or self-care (01) | DRG 190 ==
LOC: ED 07:12 → CHICATH 07:38 → ICU 08:39 → MEDTELE 10-08 19:36
PROVIDERS: ADMIT Internal Medicine Cardiovascular Disease; ATTEND Internal Medicine Cardiovascular Disease
PROC: B2111ZZ Fluoroscopy of Multiple Coronary Arteries using Low Osmolar Contrast (ICD-10-PCS; 2018-10-07)
PROC: B2151ZZ Fluoroscopy of Left Heart using Low Osmolar Contrast (ICD-10-PCS; 2018-10-07)
PROC: 4A023N7 Measurement of Cardiac Sampling and Pressure, Left Heart, Percutaneous Approach (ICD-10-PCS; principal; 2018-10-07 07:30)
DX: I21.19 ST elevation (STEMI) myocardial infarction involving other coronary artery of inferior wall (principal); I47.2 Ventricular tachycardia; J45.909 Unspecified asthma, uncomplicated; F17.210 Nicotine dependence, cigarettes, uncomplicated; I25.10 Atherosclerotic heart disease of native coronary artery without angina pectoris; I34.0 Nonrheumatic mitral (valve) insufficiency; I37.1 Nonrheumatic pulmonary valve insufficiency; E78.5 Hyperlipidemia, unspecified; Z87.442 Personal history of urinary calculi; Z91.030 Bee allergy status; Z82.49 Family history of ischemic heart disease and other diseases of the circulatory system; Z80.0 Family history of malignant neoplasm of digestive organs; Z80.6 Family history of leukemia; Z72.89 Other problems related to lifestyle; Z79.82 Long term (current) use of aspirin; Z79.02 Long term (current) use of antithrombotics/antiplatelets
CPT/HCPCS: 36415; 80048; 80053; 80061; 82550; 82553; 83036; 83605; 83721; 83735; 83874; 83880; 84484; 85025; 85347; 85610; 85730; 86850; 86900; 86901; 87641; 93005; 93306; 99285; A9270-GY; J0282; J1644; J1650; J2250; J2270; J3010

== ENCOUNTER 2018-12-23 10:59 | Emergency (ER) | payer BC ==
--- OUTSIDE RECORDS SUMMARY | 2018-12-23 11:21 | XMS REPORT | Continuity of Care Document ---
:1975 External Reference #:[id number] Author Name Tomy Ramirez DO FAC (transmitted by agent of provider Yulissa Clemente) Address [address] [place] [id number] Care Team Providers Name Role Phone Fox Chan MD - Family Care Team Information [employer] [phone] Medicine Problems Active Problems Provider Date Acute ST segment elevation Tushar Jones MD, FACC, Onset: 10/16/2018 myocardial infarction involving [facility] left anterior descending coronary artery Social History Type Date Description Comments Sex Unknown ETOH Use Currently consumes alcohol Tobacco Use Start: Unknown Patient has never smoked Smoking Status Reviewed: 10/16/18 Patient has never smoked Exercise Type/Frequency Does not exercise Allergies, Adverse Reactions, Alerts Active Allergies Reaction Severity Comments Date NKDA 05/06/2018 Dust Mites 10/16/2018 Medications Active Medications SIG Qnty Indications Ordering Date Provider Amlodipine Besylate 1 by mouth twice 30tabs Marcis T. 10/15/2018 2.5mg daily MD Karen, Tablets FACC, [facility] Aspirin 81 Low Dose 1 by mouth every 90units Marcis T. 10/15/2018 81mg day MD Karen, Chewtabs FACC, [facility] Atorvastatin Calcium 1 by mouth every 90tabs Marcis T. 10/15/2018 80mg day MD Karen, Tablets FACC, [facility] Metoprolol Succinate 1/2 tab by mouth 30tabs Marcis T. 10/15/2018 ER twice daily MD Karen, 25mg Tablets ER 24HR FACC, [facility] Nitroglycerin 1 sl q5mins x3 25tabs Marcisaias T. 10/15/2018 0.4mg as needed for MD Karen, Tablets Sub chest pain FACC, [facility] Pantoprazole Sodium 1 by mouth every 30tabs Tushar De La Torre 10/15/2018 40mg day MD Karen, Tablets ASHU RAMOS FACC Brilinta 1 tab by mouth 90tabs Tushar De La Torre 10/15/2018 90mg Tablets twice a day MD Karen, ASHU BRISCOE Flonase Allergy Relief 2 puffs each Unknown nare every in 50mcg/Act Suspension the morning Ventolin HFA 2 puffs by mouth Unknown 108(90Base) four times a day mcg/Act Aerosol as needed Epipen 2-Fidel use as directed Unknown 0.3mg/0.3ML Solution Auto-Inject History Medications Metoprolol Succinate 1 by mouth every 30tabs Tushar Jones, 2018 - ER day RACHNA HERMOSILLO FSCAI 10/15/2018 25mg Tablets ER 24HR Immunizations Description No Information Available Vital Signs Date Vital Result Comment 10/16/2018 3:32pm Height 72 inches 6'0" Weight 195.50 lb with shoes Heart Rate 60 /min left radial BP Systolic Sitting 120 mmHg Lue reg cuff BP Diastolic Sitting 76 mmHg Lue reg cuff BP Systolic Standing 120 mmHg Lue reg cuff BP Diastolic Standing 74 mmHg Lue reg cuff BMI (Body Mass Index) 26.5 kg/m2 06/20/2018 1:00pm Heart Rate 84 /min BP Systolic Sitting 122 mmHg BP Diastolic Sitting 76 mmHg Respiratory Rate 16 /min Body Temperature 98.4 F Results Test Date Facility Test Result H/L Range Note Laboratory test [facility] Poc Activated 243 seconds 1 finding [address] [place] [address] [phone] CBC No Diff [facility] White Blood 6.4 10^3/uL Normal 3.5-10.[address] [place] [address] [phone] Red Blood Count 4.56 10^6/uL Normal 4.18-5.48 Hemoglobin 14.6 g/dL Normal 14.0-18.0 Hematocrit 43 % Normal 42-52 Mean Corpuscular Volume 93 fL Normal 80-94 Mean Corpuscular Hemoglobin 32 pg High 27-31 Mean Corpuscular HGB Conc 34 g/dL Normal 31-36 Red Cell Distribution Width 13 % Normal 10-15 Platelet Count 214 10^3/uL Normal 150-450 Mean Platelet Volume 7.7 fL Normal 7.4-10.4 Laboratory test 10/07/2018 [facility] B-Type 17 pg/mL <=[address] [place] [address] Peptide BNP [phone] Troponin I 0.00 ng/mL <0.04 2 Inr/Protime 10/07/2018 [facility] Inr 0.91 Normal 0.82-1.[address] [place] [address] [phone] Laboratory test 10/07/2018 [facility] Partial 35.7 Normal 26.0 -38.[address] [address] Time PTT [phone] CBC Auto Diff 10/07/2018 [facility] White Blood 6.4 10^3/uL Normal 3.5-10.[address] [place] [address] [phone] Red Blood Count 4.56 10^6/uL Normal 4.18-5.48 Hemoglobin 14.6 g/dL Normal 14.0-18.0 Hematocrit 43 % Normal 42-52 Mean Corpuscular Volume 93 fL Normal 80-94 Mean Corpuscular Hemoglobin 32 pg High 27-31 Mean Corpuscular HGB Conc 34 g/dL Normal 31-36 Red Cell Distribution Width 13 % Normal 10-15 Platelet Count 214 10^3/uL Normal 150-450 Mean Platelet Volume 7.7 fL Normal 7.4-10.4 Abs Neutrophils 2.9 10^3/uL Normal 1.5-7.7 Abs Lymphocytes 2.2 10^3/uL Normal 1.0-4.8 Abs Monocytes 0.8 10^3/uL Normal 0-0.8 Abs Eosinophils 0.5 10^3/uL Normal 0-0.6 Abs Basophils 0.1 10^3/uL Normal 0-0.2 Abs Nucleated RBC 0.0 10^3/uL Granulocyte % 45.2 % Lymphocyte % 33.9 % Monocyte % 11.8 % Eosinophil % 7.9 % Basophil % 1.2 % Nucleated Red Blood Cells % 0.1 Comp Metabolic 10/07/2018 [facility] Sodium 140 mmol/L Normal 135-[address] [place] [address] [phone] Potassium 4.6 mmol/L Normal 3.5-5.0 Chloride 106 mmol/L Normal 101-111 Co2 Carbon Dioxide 27 mmol/L Normal 22-32 Anion Gap 7 mmol/L Normal 2-11 Glucose 109 mg/dL High 70-100 Blood Urea Nitrogen 14 mg/dL Normal 6-24 Creatinine 0.94 mg/dL Normal 0.67-1.17 BUN/Creatinine Ratio 14.9 Normal 8-20 Calcium 9.3 mg/dL Normal 8.6-10.3 Total Protein 6.9 g/dL Normal 6.4-8.9 Albumin 4.2 g/dL Normal 3.2-5.2 Globulin 2.7 g/dL Normal 2-4 Albumin/Globulin Ratio 1.6 Normal 1-3 Total Bilirubin 0.50 mg/dL Normal 0.2-1.0 Alkaline Phosphatase 50 U/L Normal 34-104 Alt 30 U/L Normal 7-52 Ast 20 U/L Normal 13-39 Egfr Non- 88.0 >60 Egfr 106.5 >60 4 Laboratory test 10/07/2018 [facility] LDL Cholesterol 162 mg/dL [address] [place] [address] [phone] Creatine Kinase(CK) 153 U/L Normal 10-223 Myoglobin 34.5 ng/mL Normal 17.4-105.7 CKMB 10/07/2018 [facility] CKMB ng/mL 1.9 ng/mL Normal 0.6- 6.3 [address] [place] [address] [phone] Type & 10/07/2018 [facility] Patient Blood A Positive Screen [address] [place] [address] [phone] Antibody Screen NEGATIVE Basic Metabolic 10/07/2018 [facility] Sodium 143 mmol/L Normal 135-145 Panel [address] [place] [address] [phone] Potassium 4.7 mmol/L Normal 3.5-5.0 Chloride 108 mmol/L Normal 101-111 Co2 Carbon Dioxide 21 mmol/L Low 22-32 Anion Gap 14 mmol/L High 2-11 Calcium 9.6 mg/dL Normal 8.6-10.3 Glucose 111 mg/dL High 70-100 Blood Urea Nitrogen 15 mg/dL Normal 6-24 Creatinine 0.99 mg/dL Normal 0.67-1.17 BUN/Creatinine Ratio 15.2 Normal 8-20 Egfr Non- 82.9 >60 Egfr 100.3 >60 6 1 Service Order Dispatcher Chief: [id number] Reference Range: 74-125 seconds 2 Troponin-I testing on Plasma Separator Tubes (PST) has a known false positive rate of 0.20-0.40%. All positive troponins reflex immediately to secondary confirmatory testing. Using the [employer] Access Immunoassay systems, the 99th percentile upper reference limit was demonstrated to be < 0.03 ng/mL. 3 Standard intensity warfarin therapeutic range: 2.0-3.0 High intensity warfarin therapeutic range: 2.5-3.5 4 Because ethnic data is not always readily available, this report includes an eGFR for both -Americans and non- Americans. The National Kidney Disease Education Program (NKDEP) does not endorse the use of the MDRD equation for patients that are not between the ages of 18 and 70, are , have extremes of body size, muscle mass, or nutritional status, or are non- or non-. According to the National Kidney Foundation, irrespective of diagnosis, the stage of the disease is based on the level of kidney function: Stage Description GFR(mL/min/1.73 m(2)) 1 Kidney damage with normal or decreased GFR 90 2 Kidney damage with mild decrease in GFR 60-89 3 Moderate decrease in GFR 30-59 4 Severe decrease in GFR 15-29 5 Kidney failure <15 (or dialysis) 5 Desirable: <100 Near Optimal: 100-129 Borderline High: 130-159 High: 160-189 Very High: >189 6 Because ethnic data is not always readily available, this report includes an eGFR for both -Americans and non- Americans. The National Kidney Disease Education Program (NKDEP) does not endorse the use of the MDRD equation for patients that are not between the ages of 18 and 70, are , have extremes of body size, muscle mass, or nutritional status, or are non- or non-. According to the National Kidney Foundation, irrespective of diagnosis, the stage of the disease is based on the level of kidney function: Stage Description GFR(mL/min/1.73 m(2)) 1 Kidney damage with normal or decreased GFR 90 2 Kidney damage with mild decrease in GFR 60-89 3 Moderate decrease in GFR 30-59 4 Severe decrease in GFR 15-29 5 Kidney failure <15 (or dialysis) Procedures Date Code Description Status 10/07/2018 77905 Left Heart Cath. Incl S/I Coronaries, Angio S/I V Gram If Completed Done 10/07/2018 82992 ECHO Transthorasic Realtime 2D W Doppler & Color Flow Hosp Completed 06/13/2018 44149 Repair Hernia Inguinal > 5Yrs, Reducible Completed Medical Devices Description No Information Available Encounters Type Date Location Provider Dx Diagnosis Office Visit 10/16/2018 [facility] Tushar De La Torre I21.02 Stemi involving 3:00p [facility] AT [facility] MD Karen, left anterior FACC, FSCAI descending coronary artery Office Visit 10/09/2018 [facility] Jose Palmer, I21.19 Stemi involving 5:07p [facility] AT [facility], [facility], oth coronary FSCAI artery of inferior wall I25.10 [facility] [place] coronary artery w/o ang pctrs E78.5 Hyperlipidemia, unspecified Office Visit 10/08/2018 4:42p [facility] Jose Palmer, R07.9 Chest pain, [facility] AT [facility], [facility], unspecified FSCAI I21.19 Stemi involving oth coronary artery of inferior wall Office Visit 10/07/2018 11:44a [facility] Jose Palmer, I21.19 Stemi involving [facility] AT [facility], [facility], oth coronary FSCAI artery of inferior wall Office Visit 05/08/2018 9:00a Surgical Iban Plascencia K40.90 [facility] Olivier Rodas hernia, w/o obst or gangr, not spcf as recur Assessments Date Code Description Provider 10/16/[address] elevation (Stemi) myocardial Tushar Jones MD, FACC , infarction involving left anterior FSCAI descending coronary artery 10/09/[address] elevation (Stemi) myocardial Jose Palmer M.D., [facility], FSCAI infarction involving other coronary artery of inferior wall 10/09/2018 I25.10 Atherosclerotic heart disease of Jose Palmer M.D., [facility], [facility] [place] coronary artery without angina pectoris 10/09/2018 E78.5 Hyperlipidemia, unspecified Jose Palmer M.D., [facility], [facility] 10/08/2018 R07.9 Chest pain, unspecified Jose Palmer M.D., [facility], [facility] 10/08/[address] elevation (Stemi) myocardial Jose Palmer M.D., [facility], [facility] infarction involving other coronary artery of inferior wall 10/07/[address] elevation (Stemi) myocardial Jose Palmer M.D., [facility], [facility] infarction involving other coronary artery of inferior wall 10/07/2018 I21.4 Non-St elevation (Nstemi) myocardial Gonzalez Power M.D. infarction 06/20/2018 K40.90 Unilateral inguinal hernia, without CURT Sanchez obstruction or gangrene, 06/20/2018 Z48.02 Encounter for removal of sutures CURT Sanchez 06/13/2018 K40.90 Unilateral inguinal hernia, without Iban Rodas M.D. obstruction or gangrene, 05/10/2018 K40.90 Unilateral inguinal hernia, without Iban Rodas M.D. obstruction or gangrene, 05/08/2018 K40.90 Unilateral inguinal hernia, without Iban Rodas M.D. obstruction or gangrene, Plan of Treatment Future Appointment(s):10/31/2018 10:00 am - [facility]omy Ramirez[facility] - Tushar Jones MD, [facility], CTCCBX04.02 St elevation (Stemi) myocardial infarction involving left anterior descending coronary arteryNew Therapy:Cardiac RehabFollow up:Dr. Ramirez at [facility] Functional Status Description No Information Available Mental Status Description No Information Available Referrals Description No Information Available
--- NOTE | 2018-12-23 11:36 | ED ---
HPI Chest Pain - HPI Summary HPI Summary: This patient is a 43 year old male with a Hx of UT 2 months ago with a chief complaint of chest pain. The patient states he has been so far successfully doing cardiac rehab since his last UT. He states this past weekend he may have been experiencing stress due to varying family activities and upcoming work. He says at onset 90 minutes ago he "didn't feel right" and he cannot describe it but that he felt that same way when he had his heart attack. He states he checked his blood pressure and it was higher than normal (145/90). He states he started to feel a discomfort in his chest and that it did not radiate but he had felt that something was not right. He states he did not participate in any physical activity. He took [address] and he states his symptoms have resolved. He rates the discomfort at the time 06/05 in severity. - History of Current Complaint Chief Complaint: EDChestPainROMI Hx Obtained From: Patient Onset/Duration: Started Hours Ago Initial Severity: Moderate Pain Intensity: 4 Pain Scale Used: 0-10 Numeric - Additional Pertinent History Primary Care Physician: [id number] - Allergy/Home Medications Allergies/Adverse Reactions: Allergies Allergy/AdvReac Type Severity Reaction Status Date / Time bee pollen Allergy Anaphylatic Verified 10/07/18 09:07 Shock bee venom protein (honey bee) Allergy Anaphylatic Verified 10/07/18 09:07 Shock Environmental/Seasonal Allergy See Comment Uncoded 06/13/18 07:26 Allergies PMH/Surg Hx/FS Hx/Imm Hx Endocrine/Hematology History: Denies: Hx Diabetes, Hx Thyroid Disease Cardiovascular History: Denies: Hx Congestive Heart Failure, Hx Deep Vein Thrombosis, Hx Hypertension , Hx Myocardial Infarction, Hx Pacemaker/ICD, Other Cardiovascular Problems/ Disorders Respiratory History: Reports: Hx Asthma - He states that he uses his albuterol a "handfull" times a year. Denies: Hx Chronic Obstructive Pulmonary Disease (COPD), Hx Lung Cancer, Other Respiratory Problems/Disorders GI History: Reports: Hx Ulcer - possible ulcer-started pantoprazole 06/05/18- seen in ER, Other GI Disorders Denies: Hx Gall Bladder Disease, Hx Gastrointestinal Bleed, Hx Urosepsis History: Reports: Hx Kidney Stones - lithotripsy 2010 Denies: Hx Renal Disease, Other Problems/Disorders Musculoskeletal History: Reports: Hx Orthopedic Injury - R hip fx, Other Musculoskeletal History - Right inguinal hernia Denies: Hx Scoliosis Sensory History: Denies: Hx Contacts or Glasses, Hx Hearing Aid Opthamlomology History: Denies: Hx Contacts or Glasses Neurological History: Reports: Hx Nerve Disease - numbness in right upper outer leg from previous injury Denies: Hx Dementia, Hx Developmental Delay, Hx Headaches, Hx Migraine, Hx Seizures, Hx Spinal Cord Injury, Hx Transient Ischemic Attacks (TIA), Other Neuro Impairments/Disorders Psychiatric History: Denies: Hx Anxiety, Hx Depression, Hx Schizophrenia, Hx Bipolar Disorder - Surgical History Surgery Procedure, Year, and Place: Kidney Stone 2010. Appendectomy 1990. Pyloric Stenosis as an . Ventral Hernia Repair as a child Hx Anesthesia Reactions: No Infectious Disease History: No Infectious Disease History: Denies: Hx Hepatitis, Hx Human Immunodeficiency Virus (HIV), Traveled Outside the [place] in Last 30 Days - Family History Known Family History: Positive: Cardiac Disease - grandfather of a heart attack at 56 y/o, Other Family History: MATERNAL UNCLE - COLON CANCER. MGF - LEUKEMIA - Social History Alcohol Use: Weekly Alcohol Amount: 2 Hx Substance Use: No Substance Use Type: Reports: None Substance Use Comment - Amount & Last Used: in frequent- last done within last week Hx Tobacco Use: Yes Smoking Status (MU): Light Every Day Tobacco Smoker - 1-2 cigarettes/day Type: Cigarettes Review of Systems Negative: Fever Positive: Shortness Of Breath All Other Systems Reviewed And Are Negative: Yes Physical Exam - Summary Physical Exam Summary: Appearance: Well-appearing, Well-nourished, lying in bed comfortably Skin: Warm, dry, no obvious rash Eyes: sclera anicteric, no conjunctival pallor ENT: mucous membranes moist, pharynx appears normal Neck: Supple, nontender Respiratory: Clear to auscultation, no signs of respiratory distress Cardiovascular: Normal S1, S2. No murmurs. Normal distal pulses in tibial and radial bilaterally. Abdomen: Soft, nontender, normal active bowel sounds present Musculoskeletal: Normal, Strength/ROM Intact Neurological: A&Ox3, awake and alert, mentation is normal, speech is fluent and appropriate Psychiatric: affect is normal, does not appear anxious or depressed Triage Information Reviewed: Yes Vital Signs On Initial Exam: Initial Vitals Temp Pulse Resp BP Pulse Ox 97.3 F 71 18 123/73 100 12/23/18 11:02 12/23/18 11:02 12/23/18 11:02 12/23/18 11:02 12/23/18 11:02 Vital Signs Reviewed: Yes Procedures - Sedation Patient Received Moderate/Deep Sedation with Procedure: No Diagnostics - Vital Signs Vital Signs Temp Pulse Resp BP Pulse Ox 12/23/18 11:02 97.3 F 71 18 123/73 100 - Laboratory Result Diagrams: 12/23/18 11:52 12/23/18 11:52 Lab Statement: Any lab studies that have been ordered have been reviewed, and results considered in the medical decision making process. - EKG 1104 Cardiac Rate: NL - 69 BPM EKG Rhythm: Sinus Rhythm Summary of EKG Findings: NSR at 69 BPM, P waves, QRS complex, and T waves are within normal limits, T waves and intervals are normal, no ischemic changes. This is a normal EKG. ED Physician has reviewed and interpreted this EKG. 1641 Cardiac Rate: Bradycardia - 59 BPM EKG Rhythm: Sinus Bradycardia Summary of EKG Findings: Inferior infarct, old. No STEMI. ED Physician has reviewed and interpreted this EKG. Chest Pain Course/Dx - Course Course Of Treatment: This patient is a 43 year old male with a Hx of UT 2 months ago with a chief complaint of chest pain. Physical exam was unremarkable. Labs were unremarkable except Hgb 13.5 L, Hct 40 L, MCH 32 H, BUN/ Creatinine ration 20.3 H, Glucose 103 H. Both Troponins were negative. EKG was unremarkable. A plan for discharge was discussed with the patient and he was agreeable with this plan. - Diagnoses Provider Diagnoses: Chest pain - Provider Notifications Discussed Care Of Patient With: Gonzalez Power - Cardiology Time Discussed With Above Provider: 15:58 - Discharge if 2nd Trop comes back negative. Discharge ED - Sign-Out/Discharge Documenting (check all that apply): Patient Departure - Discharge - Discharge Plan Condition: Good Disposition: HOME Patient Education Materials: Chest Pain (ED) Referrals: Tomy Ramirez DO [Medical Doctor] - As Soon As Possible Additional Instructions: Contact Dr. Ramirez's office tomorrow to schedule a followup visit this week. - Attestation Statements Document Initiated by Scribe: Yes Documenting Scribe: Buck Dotson Provider For Whom Scribe is Documenting (Include Credential): Humberto Hernandez MD Scribe Attestation: Buck Riddle, scribed for Humberto Hernandez MD on 12/23/18 at 1658.
[2018-12-23 12:08] LABS: ABS Basophils 0.1 10^3/ul (0-0.2); ABS Eosinophils 0.3 10^3/ul (0-0.6); ABS Lymphocytes 1.2 10^3/ul (1.0-4.8); ABS Monocytes 0.6 10^3/ul (0-0.8); ABS Neutrophils 4.2 10^3/ul (1.5-7.7); Eosinophil % 4.7 %; Hematocrit 40 % (42-52); Hemoglobin 13.5 g/dL (14.0-18.0); Lymphocyte % 18.9 %; Mean Corpuscular HGB Conc 34 g/dL (31-36); Mean Corpuscular Hemoglobin 32 pg (27-31); Mean Corpuscular Volume 94 fL (80-94); Mean Platelet Volume 8.2 fL (7.4-10.4); Platelet Count 216 10^3/uL (150-450); Red Blood Count 4.28 10^6 /uL (4.18-5.48); Red Cell Distribution Width 13 % (10-15); White Blood Count 6.3 10^3/uL (3.5-10.8)
[2018-12-23 12:15] LABS: INR 1.06 (0.82-1.09)
[2018-12-23 12:30] LABS: Albumin 4.3 g/dL (3.2-5.2); Albumin/Globulin Ratio 1.7 (1-3); BUN/Creatinine Ratio 20.3 (8-20); Calcium 9.2 mg/dL (8.6-10.3); EGFR African American 130.1 (>60); EGFR Non-African American 107.6 (>60); Globulin 2.5 g/dL (2-4); Potassium 4.2 mmol/L (3.5-5.0); Total Bilirubin 0.7 mg/dL (0.2-1.0); Total Protein 6.8 g/dL (6.4-8.9)
[2018-12-23 17:06] VITALS: BP 117/75
== END 2018-12-23 16:13 | disposition home or self-care (01) ==
LOC: ED 10:59
DX: R07.9 Chest pain, unspecified (principal); R00.1 Bradycardia, unspecified; I25.2 Old myocardial infarction; J45.909 Unspecified asthma, uncomplicated; K40.90 Unilateral inguinal hernia, without obstruction or gangrene, not specified as recurrent; F17.210 Nicotine dependence, cigarettes, uncomplicated; Z95.810 Presence of automatic (implantable) cardiac defibrillator; Z87.442 Personal history of urinary calculi
CPT/HCPCS: 36415; 80053; 84484; 85025; 85610; 93005; 99283